=== PATIENT | female | born 1965 | race Caucasian/White ===

== ENCOUNTER 2018-02-10 14:06 | Emergency (ER) | payer OTHER ==
[~2018-02-10] VITALS: Ht 165.1 cm; Wt 67.6 kg
[~2018-02-10 14:06] MED LIST: NEURONTIN 300300 M1 PO
[2018-02-10] MEDS ORDERED: VALIUM5 MG PO (14:20)
[2018-02-10] MEDS ORDERED: NORCO 5-325 TA1 EACH PO (14:20)
[2018-02-10 16:44] VITALS: BP 130/60
== END 2018-02-10 16:45 | disposition home or self-care (01) ==
LOC: ER 14:06
DX: S39.012A Strain of muscle, fascia and tendon of lower back, initial encounter (principal); F17.210 Nicotine dependence, cigarettes, uncomplicated; X50.0XXA Overexertion from strenuous movement or load, initial encounter; Y93.89 Activity, other specified; Y92.89 Other specified places as the place of occurrence of the external cause; Y99.8 Other external cause status